=== PATIENT | male | born 1960 | race Caucasian/White ===

== ENCOUNTER 2019-11-28 14:55 | Inpatient (IN) | payer OTHER ==
[2019-11-28] MEDS ORDERED: ASPIRIN 81 MG CHEWABLE TABLET ONE ×2 (15:23→16:53)
[2019-11-28] MEDS ORDERED: CLOPIDOGREL 75 MG TABLET ONE (15:24)
[2019-11-28] MEDS ORDERED: ONDANSETRON 4 MG/2 ML VIAL ONE (15:24)
[2019-11-28] MEDS ORDERED: MORPHINE 2 MG/ML SYR ONE ×2 (15:24→15:42)
[2019-11-28] MEDS ORDERED: NA CHLORIDE 0.9% 500 ML ONE (15:25)
[2019-11-28 15:32] LABS: Absolute Lymphocytes (CBC) 1.4 K/uL (0.7-4.9); Basophils % 0.7 % (0-1.3); Hematocrit 50.1 % (39.6-49.0); Lymphocytes % 9.2 % (15.3-44.8); MPV 8.2 fL (7.6-11.3); Protime INR 0.98; RBC Red Blood Cell Count 5.26 M/uL (4.33-5.43)
--- NOTE | 2019-11-28 15:36 | ER ---
Nurse's Notes [facility] Name: Jamie Myrick Age: 59 yrs Sex: Male : 1960 Arrival Date: 11/28/2019 Time: 14:56 Bed 28 Private MD: Diagnosis: ST elevation (STEMI) myocardial infarction of unspecified site Presentation: 11/28 14:59 Presenting complaint: Patient states: Left sided chest pain, nausea, and headache that iw started 30 minutes ago. States that that he has a history of MT 12 years ago. Transition of care: patient was not received from another setting of care. Onset of symptoms was November 28, 2019. Risk Assessment: Do you want to hurt yourself or someone else? Patient reports no desire to harm self or others. Initial Sepsis Screen: Does the patient meet any 2 criteria? No. Patient's initial sepsis screen is negative. Does the patient have a suspected source of infection? Yes:. Care prior to arrival: None. 14:59 Method Of Arrival: Ambulatory iw 14:59 Acuity: CHRIS 2 iw Triage Assessment: 15:02 General: Appears in no apparent distress. comfortable, Behavior is calm, cooperative, iw appropriate for age. Pain: Complains of pain in anterior aspect of left upper chest. Neuro: Level of Consciousness is awake, alert, obeys commands. Cardiovascular: Patient's skin is warm and dry. Respiratory: Airway is patent Respiratory effort is even, unlabored, Respiratory pattern is regular, symmetrical. Historical: - Allergies: 15:02 No Known Allergies; iw - Home Meds: 15:02 aspirin 81 mg Oral chew 1 tab once daily [Active]; metoprolol tartrate Oral [Active]; iw Simvastatin Oral [Active]; blood pressure medicine [Active]; - PMHx: 15:02 Myocardial infarction; Hypertension; Hyperlipidemia; iw - PSHx: 15:02 Appendectomy; iw - Immunization history:: Adult Immunizations up to date. - Coronavirus screen:: The patient has NOT traveled to [place], [place], or [place] in the past 14 days. - Social history:: Smoking status: Patient/guardian denies using tobacco. - Ebola Screening: : Patient denies travel to an Ebola-affected area in the 21 days before illness onset. Screenin:00 Abuse screen: Denies threats or abuse. Nutritional screening: No deficits noted. vc Tuberculosis screening: No symptoms or risk factors identified. Fall Risk None identified. Assessment: 15:05 Pain: Pain does not radiate. Pain began suddenly. vc 15:05 General: Appears in no apparent distress. uncomfortable, Behavior is calm, cooperative, vc appropriate for age. Pain: Complains of pain in chest Pain does not radiate. Pain Quality of pain is described as sharp, Noted to be calm. Patient states this does not feel the same as his last heart attack. Also complains of nausea, headache. Neuro: Level of Consciousness is awake, alert, obeys commands, Oriented to person, place, time, situation, When patient asked what he rates his pain he could not give an exact number. He would answer with I do not know.. Door Liner are equal bilaterally. Cardiovascular: Reports chest pain, nausea, since About 45 minutes to an hour ago. Patient's skin is warm and dry. Rhythm is. Respiratory: Airway is patent Respiratory effort is even, unlabored, Respiratory pattern is regular, symmetrical, Denies shortness of breath at rest, on exertion. GI: No signs and/or symptoms were reported involving the gastrointestinal system. : No signs and/or symptoms were reported regarding the genitourinary system. EENT: No deficits noted. Derm: Skin is intact, is healthy with good turgor, Skin temperature is warm. Musculoskeletal: Circulation, motion, and sensation intact. Range of motion: intact in all extremities. 15:05 Reassessment: Medical provider at the bedside. vc 15:10 Reassessment: Patient states , "I feel fine, my chest barely hurts anymore.". vc 15:30 Reassessment: Filter Machine Operator at the bedside. vc 15:40 Reassessment: Cardiac catherization team at the bedside. vc 15:46 Reassessment: Patient leaving ER via stretcher with cardiac nurses and mother. vc Vital Signs: 15:02 BP 125 / 91; Pulse 83; Resp 18; Pulse Ox 99% on R/A; Weight 106.59 kg (R); Height 6 ft. iw 0 in. (182.88 cm) (R); Pain 6/10; 15:21 Height 6 ft. (182.88 cm); iw 15:30 Pulse 87; Pulse Ox 96% on R/A; vc 15:21 Body Mass Index 31.87 (106.59 kg, 182.88 cm) iw ED Course: 14:56 Patient arrived in ED. as 15:00 Triage completed. iw 15:02 Arm band placed on Patient placed in an exam room. iw 15:05 Lizbeth Altamirano, RN is Primary Nurse. vc 15:05 Patient has correct armband on for positive identification. Placed in gown. Bed in low vc position. Call light in reach. Side rails up X 1. accounting reconciliation clerk on. Pulse ox on. NIBP on. 15:09 Steven Fernández PA is PHCP. cp 15:09 Clifton Rome MD is Attending Physician. cp 15:10 Patient maintains SpO2 saturation greater than 95% on room air. vc 15:17 No provider procedures requiring assistance completed. Missed attempt(s): 18 gauge in vc right forearm. Inserted. 15:21 Inserted saline lock: 20 gauge in left antecubital area, using aseptic technique. lt1 15:[address] Ordonez called and connected. eb 15:27 EKG done, by ED staff, reviewed by Steven HOLLAND. lt1 15:30 called and connected the Hospitalist Dr. Cuevas with Steven HOLLAND for patient eb consultation. 15:34 Artemio Cuevas MD is Hospitalizing Provider. cp 15:37 XRAY Chest (1 view) In Process Unspecified. EDMS 15:40 Patient admitted, IV remains in place. vc Administered Medications: 15:27 Drug: Zofran 4 mg Route: IVP; Site: left antecubital; vc 15:45 Follow up: Response: No adverse reaction vc 15:28 Drug: morphine 2 mg Route: IVP; Site: left antecubital; vc 15:40 Follow up: Response: No adverse reaction; Pain is decreased vc 15:28 Drug: PlaVIX 300 mg Route: PO; vc 15:40 Follow up: Response: No adverse reaction vc 15:29 Drug: NS 0.9% 500 ml Route: IV; Rate: bolus; Site: left antecubital; vc 15:30 Not Given (Patient took 1 200mg ASA and 3-4 81mg ASA before arrival.): Aspirin Chewable vc Tablet 324 mg PO once; 81 mg tablets x 4 15:37 CANCELLED (Duplicate Order): NS 0.9% 1000 ml IV at 100 ml/hr once wh 15:40 Drug: morphine 2 mg Route: IVP; Site: left antecubital; 16:32 Follow up: Response: No adverse reaction vc Outcome: 15:35 Decision to Hospitalize by Provider. cp 15:50 Admitted to [employer] accompanied by nurse, accompanied by tech, via wheelchair, on iw monitor, with chart. 15:50 Condition: good 15:50 Discharge instructions given to patient, family, Instructed on the need for admit, Demonstrated understanding of instructions. 16:11 Patient left the ED. iw Signatures: Dispatcher [employer] Yeimi George Irene, RN RN iw Steven Fernández PA PA cp Marielena, [facility] Scott, Veronika Braswell [facility] Lizbeth Altamirano RN RN vc Corrections: (The following items were deleted from the chart) 15:46 15:44 Reassessment: Cardiac catherization team at the bedside, vc vc 16:42 15:48 Pain: Pain does not radiate. Pain began suddenly, vc vc
[2019-11-28] MEDS ORDERED: ATROPINE SULF 1 MG/10 ML SYR IV ONE (15:37)
[2019-11-28] MEDS ORDERED: NA CHLORIDE 0.9% 50 ML ONE (15:37)
[2019-11-28] MEDS ORDERED: HEPA 1000U/500MLS 2,000 UNIT/1,000 ML BAG IV ONE (15:37)
[2019-11-28] MEDS ORDERED: LIDOCAINE 1% MPF 30 ML VIAL ONE (15:37)
--- NOTE | 2019-11-28 15:37 | EDPHYS ---
Physician Documentation [facility] Name: Jamie Myrick Age: 59 yrs Sex: Male : 1960 Arrival Date: 11/28/2019 Time: 14:56 Bed 28 Private MD: ED Physician Clifton Rome HPI: 11/28 15:20 This 59 yrs old Male presents to ER via Ambulatory with complaints of Chest cp Pain, Headache. 15:21 The patient or guardian reports chest pain that is located primarily in the anterior cp chest wall, left. Onset: 1 hour(s) ago. Associated signs and symptoms: Pertinent positives: headache, Pertinent negatives: abdominal pain, lower extremity pain, lower extremity swelling, shortness of breath, syncope, vomiting. Duration: The patient or guardian reports a single episode, that is still ongoing, but improving. Historical: - Allergies: 15:02 No Known Allergies; iw - Home Meds: 15:02 aspirin 81 mg Oral chew 1 tab once daily [Active]; metoprolol tartrate Oral [Active]; iw Simvastatin Oral [Active]; blood pressure medicine [Active]; - PMHx: 15:02 Myocardial infarction; Hypertension; Hyperlipidemia; iw - PSHx: 15:02 Appendectomy; iw - Immunization history:: Adult Immunizations up to date. - Coronavirus screen:: The patient has NOT traveled to [place], [place], or [place] in the past 14 days. - Social history:: Smoking status: Patient/guardian denies using tobacco. - Ebola Screening: : Patient denies travel to an Ebola-affected area in the 21 days before illness onset. ROS: 15:22 Eyes: Negative for injury, pain, redness, and discharge. cp 15:22 Constitutional: Negative for body aches, chills, fever, poor PO intake. 15:22 ENT: Negative for ear pain, sore throat, difficulty swallowing, difficulty handling secretions. 15:22 Cardiovascular: Positive for chest pain, Negative for edema, palpitations. 15:22 Respiratory: Negative for cough, shortness of breath, wheezing. 15:22 Abdomen/GI: Negative for abdominal pain, nausea, vomiting, and diarrhea. 15:22 Back: Negative for radiated pain. 15:22 Neuro: Negative for altered mental status, headache, weakness. 15:22 All other systems are negative. Exam: 15:15 ECG was reviewed by the Attending Physician. cp 15:23 Head/Face: Normocephalic, atraumatic. cp 15:23 Constitutional: The patient appears in no acute distress, alert, awake, non-diaphoretic, non-toxic, well developed, well nourished. 15:23 Eyes: Periorbital structures: appear normal, Conjunctiva: normal, no exudate, no injection, Sclera: no appreciated abnormality, Lids and lashes: appear normal, bilaterally. 15:23 ENT: External ear(s): are unremarkable, Nose: is normal, Mouth: Lips: moist, Oral mucosa: pink and intact, moist, Posterior pharynx: is normal, airway is patent, no erythema, no exudate. 15:23 Neck: ROM/movement: is normal, is supple, without pain, no range of motions limitations, no meningismus, no nuchal rigidity. 15:23 Chest/axilla: Inspection: normal, Palpation: is normal, no crepitus, no tenderness. 15:23 Cardiovascular: Rate: normal, Rhythm: regular, Edema: 15:25 Respiratory: the patient does not display signs of respiratory distress, Respirations: cp normal, no use of accessory muscles, no retractions, no splinting, no tachypnea, labored breathing, is not present, Breath sounds: are clear throughout, no decreased breath sounds, no stridor, no wheezing. 15:25 Abdomen/GI: Exam negative for discomfort, distension, guarding, Inspection: abdomen cp appears normal. 15:25 Back: pain, is absent, ROM is normal. 15:25 Neuro: Orientation: to person, place \T\ time. Mentation: is normal, Motor: moves all fours, strength is normal, Sensation: no obvious gross deficits. Vital Signs: 15:02 BP 125 / 91; Pulse 83; Resp 18; Pulse Ox 99% on R/A; Weight 106.59 kg (R); Height 6 ft. iw 0 in. (182.88 cm) (R); Pain 6/10; 15:21 Height 6 ft. (182.88 cm); iw 15:30 Pulse 87; Pulse Ox 96% on R/A; vc 15:21 Body Mass Index 31.87 (106.59 kg, 182.88 cm) iw MDM: 15:09 Patient medically screened. cp 15:20 Physician consultation: Geovani Ordonez MD was called at 15:15, was contacted at 15:15, cp regarding patient's condition, and will see patient in ED, shortly. 15:43 The patient was not given aspirin in the Emergency Department. Patient reports taking cp aspirin within the past 24 hours. Data reviewed: vital signs, nurses notes. Data reviewed: vital signs, nurses notes, EKG, radiologic studies, plain films, I have discussed the patient's presentation/case with the attending Emergency Department Physician;. Test interpretation: by ED physician or midlevel provider: ECG, plain radiologic studies, chest xray negative for infiltrates. Counseling: I had a detailed discussion with the patient and/or guardian regarding: the historical points, exam findings, and any diagnostic results supporting the discharge/admit diagnosis, the need for further work-up and treatment in the hospital. 11/28 15:13 Order name: Basic Metabolic Panel cp 11/28 15:13 Order name: CBC with Diff; Complete Time: 16:03 cp 11/28 16:03 Interpretation: Normal except: WBC 15.7; HCT 50.1; PATRICIA% 82.2; LYM% 9.2; NEUT A 12.9. cp 11/28 15:13 Order name: LFT's cp 11/28 15:13 Order name: Magnesium cp 11/28 15:13 Order name: NT PRO-BNP cp 11/28 15:13 Order name: PT-INR; Complete Time: 16:03 cp 11/28 15:13 Order name: Troponin (emerg Dept Use Only) cp 11/28 15:13 Order name: XRAY Chest (1 view); Complete Time: 16:03 cp 11/28 16:04 Interpretation: Report review. cp 11/28 15:13 Order name: EKG; Complete Time: 15:15 cp 11/28 15:13 Order name: Cardiac monitoring; Complete Time: 15:26 cp 11/28 15:13 Order name: EKG - Nurse/Tech; Complete Time: 15:26 cp 11/28 15:13 Order name: IV Saline Lock; Complete Time: 15:26 cp 11/28 15:13 Order name: Labs collected and sent; Complete Time: 15:31 cp 11/28 15:13 Order name: O2 Per Protocol; Complete Time: 15:26 cp 11/28 15:13 Order name: O2 Sat Monitoring; Complete Time: 15:26 cp 11/28 15:35 Order name: Labs - recollect needed: recollect chemistry tube; Complete Time: 15:41 eb EC:15 Rate is 75 beats/min. Rhythm is regular. ND interval is normal. QRS interval is normal. cp QT interval is normal. ST Segment is elevated in leads I, aVL, V2, V3, V4. ST Segment is depressed in leads III, aVF. Clinical impression: Acute TN. Interpreted by me. Reviewed by me. Administered Medications: 15:27 Drug: Zofran 4 mg Route: IVP; Site: left antecubital; vc 15:45 Follow up: Response: No adverse reaction vc 15:28 Drug: morphine 2 mg Route: IVP; Site: left antecubital; vc 15:40 Follow up: Response: No adverse reaction; Pain is decreased vc 15:28 Drug: PlaVIX 300 mg Route: PO; vc 15:40 Follow up: Response: No adverse reaction vc 15:29 Drug: NS 0.9% 500 ml Route: IV; Rate: bolus; Site: left antecubital; vc 15:30 Not Given (Patient took 1 200mg ASA and 3-4 81mg ASA before arrival.): Aspirin Chewable vc Tablet 324 mg PO once; 81 mg tablets x 4 15:37 CANCELLED (Duplicate Order): NS 0.9% 1000 ml IV at 100 ml/hr once 15:40 Drug: morphine 2 mg Route: IVP; Site: left antecubital; wh 16:32 Follow up: Response: No adverse reaction vc Disposition: 18:16 Co-signature as Attending Physician, Clifton Rome MD. ma2 Disposition: 11/28/19 15:35 Hospitalization ordered by Artemio Cuevas for Inpatient Admission. Preliminary diagnosis is ST elevation (STEMI) myocardial infarction of unspecified site. - Bed requested for Floor Coverings Salesperson. - Status is Inpatient Admission. iw - Condition is Fair. - Problem is new. - Symptoms have improved. Signatures: Dispatcher [employer] Yazmin Willett RN RN iw Steven Fernández PA PA cp Habalo, Winsy Clifton Rome MD MD maVeronika Lopes Vanessa, RN RN vc Corrections: (The following items were deleted from the chart) 15:37 15:36 NS 0.9% 1000 ml IV at 100 ml/hr once ordered. [facility] 15:45 15:20 The patient was not given aspirin in the Emergency Department. Patient reports cp taking aspirin within the past 24 hours. cp 15:45 15:20 Test interpretation: by ED physician or midlevel provider: ECG, cp cp 16:11 15:35 Hospitalization Ordered by Artemio Cuevas MD for Inpatient Admission. Preliminary iw diagnosis is ST elevation (STEMI) myocardial infarction of unspecified site. Bed requested for Floor Coverings Salesperson. Status is Inpatient Admission. Condition is Fair. Problem is new. Symptoms have improved. cp
[2019-11-28] MEDS ORDERED: NA CHLORIDE 0.9% 1,000 ML ONE (15:42)
--- NOTE | 2019-11-28 15:46 | RAD REPORT ---
EXAM DESCRIPTION: RAD - Chest Single View - 11/28/2019 3:32 pm CLINICAL HISTORY: CHEST PAIN Chest pain. COMPARISON: CHEST SINGLE VIEW dated 03/20/2012 FINDINGS: Portable technique limits examination quality. The lungs are grossly clear. The heart is normal in size. No displaced fractures. IMPRESSION: No acute intrathoracic process suspected.
[2019-11-28] MEDS ORDERED: FENTANYL CITR 100 MCG/2 ML ONE ×2 (16:00→16:27)
[2019-11-28] MEDS ORDERED: MIDAZOLAM HCL 2 MG/2 ML INJ ONE ×3 (16:00→16:27)
[2019-11-28 16:21] LABS: ALT/SGPT 29 U/L (12-78); AST/SGOT 27 U/L (15-37); Albumin 4.1 g/dL (3.4-5.0); Alkaline Phosphatase 62 U/L (45-117); BUN Blood Urea Nitrogen 25 mg/dL (7-18); Bicarbonate 25 mmol/L (21-32); Bilirubin Direct 0.2 mg/dL (0-0.2); Bilirubin Total 0.9 mg/dL (0.2-1.0); Glucose Level 117 mg/dL (74-106); Magnesium 1.9 mg/dL (1.8-2.4); NT PRO-BNP 100 pg/mL (<125); Potassium 4.1 mmol/L (3.5-5.1); Protein, Total 7.3 g/dL (6.4-8.2); Sodium Level 141 mmol/L (136-145); Troponin (Emerg Dept Use Only) < 0.02 ng/mL (0.0-0.045)
[2019-11-28] MEDS ORDERED: PRASUGREL (EFFIENT) 10 MG TAB ONE (16:54)
[2019-11-28] MEDS ORDERED: MORPHINE 2 MG/ML SYR IV PRN (17:10)
[2019-11-28] MEDS ORDERED: ALBUTEROL 2.5 MG/3 ML NEB SOL NEB PRN (17:10)
[2019-11-28] MEDS ORDERED: Oxycodone HCl/Acetaminophen 1 TAB TAB PO PRN (17:13)
--- NOTE | 2019-11-28 18:01 | P.HP ---
Certification for Inpatient Patient admitted to: Inpatient With expected LOS: >2 Midnights Patient will require the following post-hospital care: None Practitioner: I am a practitioner with admitting privileges, knowledge of patient current condition, hospital course, and medical plan of care. Services: Services provided to patient in accordance with Admission requirements found in Title 42 Section 412.3 of the Code of Federal Regulations Patient History Date of Service: 11/28/19 Reason for admission: Left-sided chest pain History of Present Illness: 59-year-old male with past medical history of HTN, hyperlipidemia, CAD status post ID with PCI 12years ago developed left-sided chest pain today after lunch while inpatient. Pain was stabbing and radiating to the back associated with nausea but no vomiting. He denies any shortness of breath. Pain continued to persist for more than 20 min. The patient presented to the ED with symptoms of the pain after taking the aspirin. EKG in the ER shows ST- elevation in the anterior leads. He was evaluated urgently by Cardiology has been taken to the cardiac catheterization lab level cardiac catheterization. Findings soft stenosis of the LAD which was stented. Postprocedure patient feels much better. No more chest pain. He denies any shortness of breath. Allergies erythromycin base [Erythromycin Base] Adverse Reaction (Intermediate, Verified 07/14/12 03:15) Nausea/Vomiting Home Medications: NK [No Home Meds] 03/20/12 Aspirin 325 mg PO DAILY #0 tablet 03/22/12 Clopidogrel Bisulfate [Plavix*] 75 mg PO DAILY #0 tablet 03/22/12 Lisinopril [Prinivil] 10 mg PO DAILY #0 tablet 03/22/12 Metoprolol Succinate [Toprol Xl] 50 mg PO DAILY #0 tab.sr.24h 03/22/12 Simvastatin 40 mg PO BEDTIME #0 tablet 03/22/12 - Past Medical/Surgical History Diabetic: No -: Hypertension -: Hyperlipidemia -: CAD -: Appendectomy - Family History Family History: Reviewed- Non-Contributory - Social History Smoking Status: Never smoker Alcohol use: Yes CD- Drugs: No Caffeine use: Yes Place of Residence: Home Review of Systems 10-point ROS is otherwise unremarkable Physical Examination - Vital Signs Blood Pressure: 125/91 Pulse: 83 Respirations: 18 - Physical Exam General: Alert, In no apparent distress, Oriented x3, Obese HEENT: Atraumatic, Normocephalic Neck: Supple, 2+ carotid pulse no bruit, Other (Few Misael lower rash over right clavicle area) Respiratory: Clear to auscultation bilaterally, Normal air movement Cardiovascular: No edema, Normal pulses, Regular rate/rhythm, Normal S1 S2 Gastrointestinal: Normal bowel sounds, Soft and benign, Non-distended Musculoskeletal: No clubbing, No swelling Integumentary: No rashes, No breakdown Neurological: Normal speech, Normal strength at 5/5 x4 extr, Cranial nerves 3- 12 intact - Studies Laboratory Data (last 24 hrs) 11/28/19 15:45: Sodium 141, Potassium 4.1, BUN 25 H, Creatinine 1.60 H, Glucose 117 H, Magnesium 1.9, Total Bilirubin 0.9, AST 27, ALT 29, Alkaline Phosphatase 62 11/28/19 15:10: PT 11.6, INR 0.98 11/28/19 15:10: WBC 15.7 H, Hgb 17.1, Hct 50.1 H, Plt Count 247 Assessment and Plan - Problems (Diagnosis) (1) STEMI (ST elevation myocardial infarction) Current Visit: Yes Status: Acute (2) HTN (hypertension) Current Visit: Yes Status: Acute (3) Obesity Current Visit: Yes Status: Acute (4) HLD (hyperlipidemia) Current Visit: Yes Status: Acute Discharge Plan: Home Plan to discharge in: 48 Hours - Advance Directives Does patient have a Living Will: No Does patient have a Durable POA for Healthcare: No - Code Status/Comfort Care Code Status: Full Code Physician Review: Patient Assessed, Agree with Above Assessment and Plan Physician Review Additional Text: STEMI- s/p PCI with LAD stent -c/w statin/aspirin/plavix/lovenox per cardiology -resume beta-patricia - monitor in ICU for next 24 hrs -can start plan for cardiac rehab HTN- controlled , c/w regime HLD -follow lipid panel in am , may need adjusrt statin dose DVT prop- on lovenox
[2019-11-28] MEDS: METOPROLOL TAR 50 MG TAB PO SCH (18:25)
[2019-11-28] MEDS: FAMOTIDINE 20 MG/2 ML VIAL IV SCH (20:18)
[2019-11-28] MEDS: ATORVASTATIN 80 MG TAB PO SCH (20:18)
[2019-11-28] MEDS: INSULIN -REGULAR HUMAN 50 UNIT/0.5 ML ML SQ SCH (20:19)
--- NOTE | 2019-11-28 20:55 | CON ---
Reason For Consultation: Mr. Myrick is having an acute LA. He will be taken to the cardiac cath la b and have an attempt at a stent. History Of Present Illness: Mr. Myrick was in his usual state of health. He was fishing at about 0 130 today, started having chest pain. He got to the emergency room closer to 3 o'clock and his EKG s hows ST elevation in leads 1 and aVL consistent with occlusion of a large diagonal coronary artery. In 2011, he had a stent of the proximal LAD, coronary artery. Mr. Myrick has underlying hypertensio n, dyslipidemia. He reports no allergies to x-ray contrast material or other drugs use in the cath l ab. He is intolerant of erythromycin base. Home Medications: Aspirin, metoprolol, simvastatin, and another blood pressure medicine that we do n ot know. Past Surgical History: He had a stent in 2011 and appendectomy before that. Physical Examination: General: He is alert, oriented, pleasant, obese, not in distress. Vital Signs: Blood pressure 125/91, pulse 83. Weight 106 kg, height 6 feet 0 inch tall, body mass i ndex 31. HEENT: Otherwise normal. No carotid bruit. Lungs: Clear. No pulmonary edema. No pulmonary crackles. The patient has been given Plavix 300 mg by mouth and aspirin. Impression And Plan: He is having an acute myocardial infarction. There may be some difficulty gett ing a diagonal open with a proximal left anterior descending stent present, it may be jailing the ves andreea that we should give it a good try to see if he needs emergency bypass surgery if we can open it w ith a stent. He is not in much distress, so we need to move quickly and see what the anatomy is, see what we can do to help. LETHA/ANDREW Voice ID: [id number] Report ID: [id number]
--- NOTE | 2019-11-29 03:47 | OP ---
Surgeon: Geovani Ordonez MD Identification: 59-year-old man. Procedure: Left heart catheterization; coronary angiography; percutaneous coronary intervention of a totally occluded left anterior descending artery for ST-elevation anterior myocardial infarction, successful. Procedure Findings: The patient's right coronary artery, left main, and circumflex arteries were free of any stenosis. There was minimal lumen irregularity there. The LAD was totally occluded right after the first diagonal and first septal. A stent had been placed in the proximal LAD and ended right about the point of the thrombus started. After the thrombus had been cleared, we could tell there was about a 70% stenosis in the mid LAD that probably caused the thrombosis. So, it is not really fair to call it an in- stent stenosis, although the thrombus extended to the end of the stent placed in 2011. After the procedure was complete and after we placed the 2.5 x 20 stent inflated to 11 atmospheres, there was no residual stenosis. There was HAZEL grade 3 flow. The very, very distal part of the LAD placed beyond where we would normally try to put stents appeared to be totally occluded, but by that time, the patient was asymptomatic. His ST segments had resolved and we decided not to attempt to open the very distal LAD. So, in summary, successful percutaneous coronary intervention for ST-elevation anterior [place]. Procedure In Detail: The patient was brought to the cardiac labor custodian. He was not fasting. It was emergent. He had drunk fluids about an hour before the case. Sedated with Versed and fentanyl, prepared and draped in usual sterile fashion. No radial pulse could be detected, so we used the right femoral approach. 1% lidocaine was used to anesthetize the skin. We entered the artery using an 18-gauge needle, cannulated it with a short J-wire, and placed a 6-Maltese sheath, flushed the sheath. We gave Angiomax as soon as we were able to visualize what the lesion was. We used a JL4 to angiogram left coronary , 3DRC to angiogram the right, both 6-Maltese catheters. We then switched to a 6 -Maltese XBLAD 3.5 with side holes. We used a [place] wire inside an Emerge 2.5 x 15 balloon. We were able to cross the lesion. It was very soft, all thrombus , no calcification or significant angulation to deal with. Once the wire was across, we established HAZEL grade 3 flow and we were able to see the lesion. We then stented across the lesion. The stent overlapped the old stent slightly. It was a 2.5 x 20 and the HAZEL flow was good after that. At the end of the procedure, pictures were taken in orthogonal views with the wire and stents taken out. A good angiographic result was seen. 1 dose of nitroglycerin intracoronary was given. It did not really change anything. Sheath shot was done and we were able to see a good anatomy for closure using Angio-Seal. Once the ACT is less than 300 seconds, we will close with Angio- Seal. He will be in the ICU overnight. Railroad Construction Director: Matthew Santoyo. Complications: No complications. Estimated Blood Loss: 10 cc. LETHA/ANDREW Voice ID: [id number] Report ID: [id number]
[2019-11-29 04:54] LABS: Absolute Lymphocytes (CBC) 1.6 K/uL (0.7-4.9); Basophils % 0.5 % (0-1.3); Hematocrit 45.3 % (39.6-49.0); Lymphocytes % 14.3 % (15.3-44.8); MPV 8.1 fL (7.6-11.3); RBC Red Blood Cell Count 4.79 M/uL (4.33-5.43)
[2019-11-29] MEDS: METOPROLOL TAR 50 MG TAB PO SCH ×2 (05:13→17:10)
[2019-11-29 05:17] LABS: Albumin 3.6 g/dL (3.4-5.0); Bilirubin Total 1.6 mg/dL (0.2-1.0); Potassium 3.7 mmol/L (3.5-5.1); Protein, Total 6.2 g/dL (6.4-8.2)
[2019-11-29 05:34] LABS: Troponin I 23.1 ng/mL (0.0-0.045)
[2019-11-29 05:40] VITALS: BMI 32.4
[2019-11-29] MEDS: INSULIN -REGULAR HUMAN 50 UNIT/0.5 ML ML SQ SCH ×2 (07:30→11:30)
[2019-11-29] MEDS: LOSARTAN POTASSIUM 50 MG TABLET PO SCH (09:16)
[2019-11-29] MEDS: ASPIRIN EC 81 MG TAB PO SCH (09:16)
[2019-11-29] MEDS: CLOPIDOGREL 75 MG TABLET PO SCH (09:16)
[2019-11-29] MEDS: FAMOTIDINE 20 MG/2 ML VIAL IV SCH ×2 (09:17→20:14)
--- NOTE | 2019-11-29 11:06 | P.PN ---
Subjective Date of Service: 11/29/19 Chief Complaint: Left-sided chest pain Subjective: No new changes, Tolerating diet, Doing well Review of Systems 10-point ROS is otherwise unremarkable Physical Examination - Vital Signs Temperature: 97.7 F Blood Pressure: 115/56 Pulse: 71 Respirations: 19 Pulse Ox (%): 93 - Physical Exam General: Alert, In no apparent distress, Oriented x3 HEENT: Atraumatic, Normocephalic, PERRLA, Mucous membr. moist/pink Neck: 2+ carotid pulse no bruit, JVD not distended Respiratory: Clear to auscultation bilaterally, Normal air movement Cardiovascular: No edema, Normal pulses, Regular rate/rhythm, Normal S1 S2 Gastrointestinal: Normal bowel sounds, Soft and benign, Non-distended Musculoskeletal: No clubbing, No swelling (Dsg over right groin) Neurological: Normal speech, Sensation intact, Cranial nerves 3-12 intact - Studies Laboratory Data (last 24 hrs) 11/28/19 15:45: Sodium 141, Potassium 4.1, BUN 25 H, Creatinine 1.60 H, Glucose 117 H, Magnesium 1.9, Total Bilirubin 0.9, AST 27, ALT 29, Alkaline Phosphatase 62 11/28/19 15:10: PT 11.6, INR 0.98 11/28/19 15:10: WBC 15.7 H, Hgb 17.1, Hct 50.1 H, Plt Count 247 Medications List Reviewed: Yes Assessment & Plan - Problems (Diagnosis) (1) STEMI (ST elevation myocardial infarction) Current Visit: Yes Status: Acute (2) HTN (hypertension) Current Visit: Yes Status: Acute (3) Obesity Current Visit: Yes Status: Acute (4) HLD (hyperlipidemia) Current Visit: Yes Status: Acute Physician Review: Patient Assessed, Agree with Above Assessment and Plan Physician Review Additional Text: STEMI- improving - no arrhythmias on tele -follow cardiology -s/p PCI with LAD stent -c/w statin/aspirin/plavix/lovenox per cardiology - will transfer to floor today ARF - improving -creatinine to 1.27 -appreciate renal team eval HTN- controlled , c/w regime HLD -controlled lipid panel ,c/ home statin dose DVT prop- on lovenox possible dc home if cleared by cardiology Time Spent Managing Pts Care (In Minutes): 31
--- NOTE | 2019-11-29 12:11 | PN ---
Mr. Myrick is doing very well following an ST-elevation [place], treated with emergency proximal and mid LAD stents. No further chest pain. No ST elevation. Laboratory exam looks good. His troponin is e levated as expected. It was less than 0.02 on arrival 23.1 this morning. His lipid panel is really quite good, but we are going to treat him with 80 mg of Lipitor in spite of his already reasonably go od lipid profile. He is ready to be transferred to a regular floor, begin walking, and probably be d ischarged tomorrow if he is stable. LETHA/ANDREW Voice ID: [id number] Report ID: [id number]
[2019-11-29] MEDS: ATORVASTATIN 80 MG TAB PO SCH (20:14)
[2019-11-30] MEDS: METOPROLOL TAR 50 MG TAB PO SCH (05:26)
[2019-11-30 06:17] LABS: Absolute Lymphocytes (CBC) 1.8 K/uL (0.7-4.9); Basophils % 0.5 % (0-1.3); Hematocrit 48.5 % (39.6-49.0); MPV 8.2 fL (7.6-11.3); RBC Red Blood Cell Count 5.09 M/uL (4.33-5.43)
[2019-11-30 06:28] LABS: Albumin 3.9 g/dL (3.4-5.0); Bilirubin Total 1.3 mg/dL (0.2-1.0); Potassium 3.8 mmol/L (3.5-5.1); Protein, Total 7.2 g/dL (6.4-8.2)
--- NOTE | 2019-11-30 06:31 | EKG ---
Test Date: 2019-11-28 Test Time: 15:09:26 Gis Developer: BRADLEY MEASUREMENT RESULTS: Intervals: Rate: 75 NC: 154 QRSD: 80 QT: 394 QTc: 439 [place]: P: 21 NC: 154 QRS: 47 T: -4 INTERPRETIVE STATEMENTS: Normal sinus rhythm ST elevation, consider lateral injury or acute infarct ACUTE NM / STEMI Abnormal ECG Compared to ECG 03/22/2012 06:34:05 ST (T wave) deviation now present Myocardial infarct finding now present Right-axis deviation no longer present T-wave abnormality no longer present Possible ischemia no longer present Electronically Signed On 11-30-19 06:30:18 BIOMECHANICAL ENGINEER by Geovani Ordonez
[2019-11-30 06:45] LABS: Troponin I 9.69 ng/mL (0.0-0.045)
--- NOTE | 2019-11-30 09:00 | P.DS ---
Admission Date: 11/28/19 Discharge Date: 11/30/19 Disposition: ROUTINE DISCHARGE Discharge Condition: FAIR Reason for Admission: Left-sided chest pain - Problems (1) STEMI (ST elevation myocardial infarction) Current Visit: Yes Status: Acute (2) HTN (hypertension) Current Visit: Yes Status: Acute (3) Obesity Current Visit: Yes Status: Acute (4) HLD (hyperlipidemia) Current Visit: Yes Status: Acute Brief History of Present Illness: 59-year-old male with past medical history of HTN, hyperlipidemia, CAD status post OR with PCI 12years ago developed left-sided chest pain today after lunch while inpatient. Pain was stabbing and radiating to the back associated with nausea but no vomiting. He denies any shortness of breath. Pain continued to persist for more than 20 min. The patient presented to the ED with symptoms of the pain after taking the aspirin. EKG in the ER shows ST- elevation in the anterior leads. He was evaluated urgently by Cardiology has been taken to the cardiac catheterization lab level cardiac catheterization. Findings soft stenosis of the LAD which was stented. Postprocedure patient feels much better. No more chest pain. He denies any shortness of breath. Hospital Course: Patient on admission was not with until wall STEMI. He was also noted with elevated creatinine to 1.6. He underwent an urgent cardiac catheterization with LAD PCI x1. He has was started on IV fluid. His creatinine improved to 1.2 continued to improve now. Patient is doing well ambulating without any difficulty or shortness of breath or recurrence of chest pain. He will be discharged home today follow with Cardiology as outpatient Vital Signs/Physical Exam: Temp Pulse Resp BP Pulse Ox 98.0 F 68 16 133/72 94 11/30/19 04:00 11/30/19 05:26 11/30/19 04:00 11/30/19 05:26 11/30/19 04:00 General: Alert, In no apparent distress, Oriented x3 HEENT: Atraumatic, Normocephalic, PERRLA Neck: 2+ carotid pulse no bruit, JVD not distended Respiratory: Clear to auscultation bilaterally, Normal air movement Cardiovascular: Normal S1 S2 Gastrointestinal: Normal bowel sounds, Soft and benign Integumentary: No rashes, No breakdown Neurological: Normal speech, Normal strength at 5/5 x4 extr, Normal tone Laboratory Data at Discharge: WBC 9.2 K/uL (4.3-10.9) D 11/30/19 05:30 Hgb 16.4 g/dL (13.6-17.9) 11/30/19 05:30 Hct 48.5 % (39.6-49.0) 11/30/19 05:30 Plt Count 221 K/uL (152-406) 11/30/19 05:30 PT 11.6 SECONDS (9.5-12.5) 11/28/19 15:10 INR 0.98 11/28/19 15:10 Sodium 138 mmol/L (136-145) 11/30/19 05:30 Potassium 3.8 mmol/L (3.5-5.1) 11/30/19 05:30 BUN 16 mg/dL (7-18) 11/30/19 05:30 Creatinine 1.35 mg/dL (0.55-1.3) H 11/30/19 05:30 Glucose 97 mg/dL (74-106) 11/30/19 05:30 Magnesium 1.9 mg/dL (1.8-2.4) 11/28/19 15:45 Total Bilirubin 1.3 mg/dL (0.2-1.0) H 11/30/19 05:30 AST 63 U/L (15-37) H 11/30/19 05:30 ALT 32 U/L (12-78) 11/30/19 05:30 Alkaline Phosphatase 57 U/L (45-117) 11/30/19 05:30 Troponin I 9.69 ng/mL (0.0-0.045) H* 11/30/19 05:30 Triglycerides 87 mg/dL (<150) 11/29/19 04:36 Cholesterol 106 mg/dL (<200) 11/29/19 04:36 HDL Cholesterol 42 mg/dL (40-60) 11/29/19 04:36 Cholesterol/HDL Ratio 2.52 11/29/19 04:36 Laboratory Last Values WBC 9.2 K/uL (4.3-10.9) D 11/30/19 05:30 RBC 5.09 M/uL (4.33-5.43) 11/30/19 05:30 Hgb 16.4 g/dL (13.6-17.9) 11/30/19 05:30 Hct 48.5 % (39.6-49.0) 11/30/19 05:30 MCV 95.3 fL (80-100) 11/30/19 05:30 MCH 32.3 pg (27.0-35.0) 11/30/19 05:30 MCHC 33.8 g/dL (32.0-36.0) 11/30/19 05:30 RDW 13.4 % (12.1-15.2) 11/30/19 05:30 Plt Count 221 K/uL (152-406) 11/30/19 05:30 MPV 8.2 fL (7.6-11.3) 11/30/19 05:30 Plt Distribution Width Cancelled 11/29/19 Unknown Neutrophils % 66.7 % (41.7-73.7) 11/30/19 05:30 Lymphocytes % 20.0 % (15.3-44.8) 11/30/19 05:30 Monocytes % 7.0 % (3.3-12.3) 11/30/19 05:30 Eosinophils % 5.8 % (0-4.4) H 11/30/19 05:30 Basophils % 0.5 % (0-1.3) 11/30/19 05:30 Absolute Neutrophils 6.1 K/uL (1.8-8.0) 11/30/19 05:30 Absolute Lymphocytes 1.8 K/uL (0.7-4.9) 11/30/19 05:30 Absolute Monocytes 0.6 K/uL (0.1-1.3) 11/30/19 05:30 Absolute Eosinophils 0.5 K/uL (0-0.5) 11/30/19 05:30 Absolute Basophils 0.0 K/uL (0-0.5) 11/30/19 05:30 PT 11.6 SECONDS (9.5-12.5) 11/28/19 15:10 INR 0.98 11/28/19 15:10 Activated Clotting Time 230 SECONDS (127-162) H 11/28/19 17:05 Sodium 138 mmol/L (136-145) 11/30/19 05:30 Potassium 3.8 mmol/L (3.5-5.1) 11/30/19 05:30 Chloride 106 mmol/L (98-107) 11/30/19 05:30 Carbon Dioxide 25 mmol/L (21-32) 11/30/19 05:30 BUN 16 mg/dL (7-18) 11/30/19 05:30 Creatinine 1.35 mg/dL (0.55-1.3) H 11/30/19 05:30 Estimated GFR 54 mL/min (=/>90) L 11/30/19 05:30 Glucose 97 mg/dL (74-106) 11/30/19 05:30 POC Glucose 122 mg/dl (65-120) H 11/28/19 20:08 Calcium 8.8 mg/dL (8.5-10.1) 11/30/19 05:30 Magnesium 1.9 mg/dL (1.8-2.4) 11/28/19 15:45 Total Bilirubin 1.3 mg/dL (0.2-1.0) H 11/30/19 05:30 Direct Bilirubin 0.2 mg/dL (0-0.2) 11/28/19 15:45 AST 63 U/L (15-37) H 11/30/19 05:30 ALT 32 U/L (12-78) 11/30/19 05:30 Alkaline Phosphatase 57 U/L (45-117) 11/30/19 05:30 Rapid Troponin I < 0.02 ng/mL (0.0-0.045) 11/28/19 15:45 Troponin I 9.69 ng/mL (0.0-0.045) H* 11/30/19 05:30 NT-Pro-B Natriuret Pep 100 pg/mL (<125) 11/28/19 15:45 Serum Total Protein 7.2 g/dL (6.4-8.2) 11/30/19 05:30 Albumin 3.9 g/dL (3.4-5.0) 11/30/19 05:30 Globulin 3.3 g/dL (2.3-3.5) 11/30/19 05:30 Albumin/Globulin Ratio 1.2 (1.1-1.8) 11/30/19 05:30 Triglycerides 87 mg/dL (<150) 11/29/19 04:36 Cholesterol 106 mg/dL (<200) 11/29/19 04:36 LDL Cholesterol, Calc 47 (<130) 11/29/19 04:36 HDL Cholesterol 42 mg/dL (40-60) 11/29/19 04:36 Cholesterol/HDL Ratio 2.52 11/29/19 04:36 Home Medications: Clopidogrel Bisulfate [Plavix*] 75 mg PO DAILY #0 tablet 03/22/12 Lisinopril [Prinivil] 10 mg PO DAILY #0 tablet 03/22/12 Aspirin [Aspirin EC 81 MG] 81 mg PO DAILY 11/28/19 Metoprolol Succinate [Toprol Xl] 50 mg PO BID 11/28/19 Atorvastatin Calcium [Lipitor] 80 mg PO BEDTIME #30 tab 11/29/19 New Medications: Atorvastatin Calcium [Lipitor] 80 mg PO BEDTIME #30 tab Diet: Low sodium Activity: Ad michelle Followup: Geovani Ordonez MD [ACTIVE - CAN ADMIT] - 2-3 Days Physician Review: Patient Assessed, Agree with Above Assessment and Plan Time spent managing pt's care (in minutes): 35
[2019-11-30] MEDS: CLOPIDOGREL 75 MG TABLET PO SCH (09:45)
[2019-11-30] MEDS: ASPIRIN EC 81 MG TAB PO SCH (09:45)
[2019-11-30] MEDS: FAMOTIDINE 20 MG/2 ML VIAL IV SCH (09:45)
[2019-11-30] MEDS: LOSARTAN POTASSIUM 50 MG TABLET PO SCH (09:45)
[2019-11-30 09:53] VITALS: BP 127/82; TEMP 98.2
--- NOTE | 2019-11-30 11:13 | EKG ---
Test Date: 2019-11-30 Test Time: 08:41:45 Scheduling Representative: RT Dobson MEASUREMENT RESULTS: Intervals: Rate: 58 NH: 144 QRSD: 82 QT: 498 QTc: 488 [place]: P: 24 NH: 144 QRS: 77 T: 110 INTERPRETIVE STATEMENTS: Sinus bradycardia T wave abnormality, consider anterior ischemia Prolonged QT Abnormal ECG Compared to ECG 11/28/2019 15:09:26 T-wave abnormality now present Possible ischemia now present Prolonged QT interval now present Sinus rhythm no longer present ST (T wave) deviation no longer present Myocardial infarct finding no longer present Electronically Signed On 11-30-19 11:12:49 CELERY WRAPPER by Geovani Ordonez
[2019-11-30 13:36] VITALS: O2SAT 97
--- NOTE | 2019-11-30 16:36 | PN ---
A 59-year-old man. Mr. Myrick is doing very well, following his acute LAD stent for an anterior ST- elevation [place]. He is going to go home, taken atorvastatin, aspirin 81, Plavix 75, lisinopril 10, and metoprolol 50 b.i.d. He is asymptomatic. His right femoral puncture site looks good. No evidence o f AV fistula hematoma hemorrhage. He seems to understand his diagnosis, the treatment that was given and our plans for followup including exercise, diet, return to work. He will call my office for fol lowup visit tomorrow to see Dr. Curtis, his usual doctor in about 2 weeks. LETHA/ANDREW Voice ID: [id number] Report ID: [id number]
--- NOTE | 2019-12-02 11:34 | P.CNS ---
Date of Consult: 11/29/19 Reason for Consult: Acute kidney injury. Requesting Physician: Artemio Cuevas Chief Complaint: Left-sided chest pain History of Present Illness: 59-year-old male patient came to the Emergency Department complaint of chest pain. He was found to have STEMI and he was admitted for management of this particular condition. He had urgent LHC with stent placed in his left anterior descending artery. Labs showed acute kidney injury and nephrology consult was placed in view of exposure to contrast exposure from [facility]. On review of system he denied chest pain, nausea, and vomiting, cramping. He denied any issues use of nonsteroidal anti-inflammatory drugs, over-the- counter medication. He was never told he has kidney injury in the past Allergies erythromycin base [Erythromycin Base] Adverse Reaction (Intermediate, Verified 07/14/12 03:15) Nausea/Vomiting Home Medications: Clopidogrel Bisulfate [Plavix*] 75 mg PO DAILY #0 tablet 03/22/12 Lisinopril [Prinivil] 10 mg PO DAILY #0 tablet 03/22/12 Aspirin [Aspirin EC 81 MG] 81 mg PO DAILY 11/28/19 Metoprolol Succinate [Toprol Xl] 50 mg PO BID 11/28/19 Atorvastatin Calcium [Lipitor] 80 mg PO BEDTIME #30 tab 11/29/19 Clopidogrel Bisulfate [Plavix*] 75 mg PO DAILY #30 tablet 11/30/19 Metoprolol Tartrate [Lopressor*] 50 mg PO BID 6AM 6PM tab 11/30/19 - Past Medical/Surgical History Diabetic: No -: Hypertension -: Hyperlipidemia -: CAD -: NC -: Appendectomy - Social History Smoking Status: Never smoker Alcohol use: Yes CD- Drugs: No Caffeine use: Yes Place of Residence: Home Review of Systems Unremarkable Physical Examination Temp Pulse Resp BP Pulse Ox 98.2 F 62 20 127/82 96 11/30/19 08:00 11/30/19 08:00 11/30/19 08:00 11/30/19 08:00 11/30/19 08:00 General: Alert, Oriented x3 HEENT: Atraumatic Neck: Supple Respiratory: Clear to auscultation bilaterally Cardiovascular: Regular rate/rhythm, Normal S1 S2 Gastrointestinal: Normal bowel sounds Musculoskeletal: No clubbing Neurological: Normal speech, Normal strength at 5/5 x4 extr Conclusions/Impression: His creatinine has trended down since admission and LHC was performed. No new issues at this time. We will monitor his renal function closely in view of his exposure to contrast agent. Time Spent Managing Pts care (In Minutes): 50
--- NOTE | 2019-12-02 11:39 | P.PN ---
Subjective Date of Service: 12/02/19 Chief Complaint: Left-sided chest pain Subjective: No new changes, Doing well Review of Systems Unremarkable Physical Examination - Vital Signs Temperature: 98.2 F Blood Pressure: 127/82 Pulse: 62 Respirations: 20 Pulse Ox (%): 96 - Physical Exam General: Alert, In no apparent distress HEENT: Atraumatic, Normocephalic, PERRLA Neck: Supple Respiratory: Clear to auscultation bilaterally Cardiovascular: Regular rate/rhythm, Normal S1 S2 Gastrointestinal: Normal bowel sounds Musculoskeletal: No swelling Neurological: Normal speech, Normal strength at 5/5 x4 extr - Studies Medications List Reviewed: Yes Assessment And Plan - Plan Creatinine is still stable. No new development in the last 24 No concerns about prior contrast exposure for LHC. Ok for discharge home to follow up with PCP for labs in the next week. Physician Review: Patient Assessed, Agree with Above Assessment and Plan Physician Review Additional Text: STEMI- improving - no arrhythmias on tele -follow cardiology -s/p PCI with LAD stent -c/w statin/aspirin/plavix/lovenox per cardiology - will transfer to floor today ARF - improving -creatinine to 1.27 -appreciate renal team eval HTN- controlled , c/w regime HLD -controlled lipid panel ,c/ home statin dose DVT prop- on lovenox possible dc home if cleared by cardiology
== END 2019-11-30 13:05 | disposition home or self-care (01) | DRG 247 ==
LOC: ER 14:55 → 3RD-ICU 16:52 → 2ND 11-29 12:25
PROVIDERS: ADMIT Internal Medicine; ATTEND Internal Medicine
PROC: 4A023N7 Measurement of Cardiac Sampling and Pressure, Left Heart, Percutaneous Approach (ICD-10-PCS; principal; 2019-11-28)
PROC: 027034Z Dilation of Coronary Artery, One Artery with Drug-eluting Intraluminal Device, Percutaneous Approach (ICD-10-PCS; 2019-11-28)
DX: I21.3 ST elevation (STEMI) myocardial infarction of unspecified site (principal); N17.9 Acute kidney failure, unspecified; I10 Essential (primary) hypertension; E78.5 Hyperlipidemia, unspecified; E66.9 Obesity, unspecified; Z68.32 Body mass index [BMI] 32.0-32.9, adult; I25.2 Old myocardial infarction
CPT/HCPCS: 36415; 71045; 80048; 80053; 80061; 80076; 82947; 83735; 83880; 84484; 85025; 85347; 85610; 92928; 93005; 93454; 96374; 96375; 99285; C1725; C1877; C1893; J0583; J2250; J2270; J2405; J3010; J7030; J7040

== ENCOUNTER 2020-01-17 16:03 | Inpatient (IN) | payer OTHER ==
[2020-01-17] MEDS ORDERED: NA CHLORIDE 0.9% 1,000 ML ONE (16:55)
[2020-01-17] MEDS ORDERED: HEPARIN 5000 UNIT/ML 1 ML VIAL ONE (16:55)
[2020-01-17] MEDS ORDERED: HEPARIN/D5W 25,000 UNIT/500 ML BAG IV ONE (16:55)
[2020-01-17] MEDS ORDERED: FAMOTIDINE 20 MG/2 ML VIAL IV ONE (16:55)
--- NOTE | 2020-01-17 17:07 | EDPHYS ---
Physician Documentation [facility] Name: Jamie Myrick Age: 60 yrs Sex: Male : 1960 Arrival Date: 01/17/2020 Time: 16:10 Bed 23 Private MD: Solomon Cardenas T ED Physician Steven Chávez HPI: 01/16 16:44 This 60 yrs old Male presents to ER via Ambulatory with complaints of merritt Headache. 16:44 The patient complains of pain to the left occipital area, left base of the skull, right merritt occipital area and right base of the skull. 16:45 The patient describes the headache as aching. Onset: The symptoms/episode merritt began/occurred just prior to arrival, this morning. The patient or guardian reports chest pain that is located primarily in the substernal area. Onset: this morning, today. The pain does not radiate. Severity of symptoms: At its worst the pain was mild, in the emergency department the pain is unchanged. Historical: - Allergies: 16:32 No Known Allergies; ss - PMHx: 16:32 Hyperlipidemia; Hypertension; Myocardial infarction; ss - PSHx: 16:32 Appendectomy; cardiac stent; ss - Immunization history:: Adult Immunizations up to date. - Social history:: Smoking status: Patient denies any tobacco usage or history of. - Family history:: not pertinent. ROS: 16:45 Constitutional: Negative for fever, chills, and weight loss, Eyes: Negative for injury, merritt pain, redness, and discharge, ENT: Negative for injury, pain, and discharge, Neck: Negative for injury, pain, and swelling, Respiratory: Negative for shortness of breath, cough, wheezing, and pleuritic chest pain, Abdomen/GI: Negative for abdominal pain, nausea, vomiting, diarrhea, and constipation, Back: Negative for injury and pain, : Negative for injury, bleeding, discharge, and swelling, MS/Extremity: Negative for injury and deformity, Skin: Negative for injury, rash, and discoloration, Psych: Negative for depression, anxiety, suicide ideation, homicidal ideation, and hallucinations, Allergy/Immunology: Negative for hives, rash, and allergies, Endocrine: Negative for neck swelling, polydipsia, polyuria, polyphagia, and marked weight changes, Hematologic/Lymphatic: Negative for swollen nodes, abnormal bleeding, and unusual bruising. 16:45 Cardiovascular: Positive for chest pain. 16:45 Neuro: Positive for headache. Exam: 16:45 Constitutional: This is a well developed, well nourished patient who is awake, alert, merritt and in no acute distress. Head/Face: Normocephalic, atraumatic. Eyes: Pupils equal round and reactive to light, extra-ocular motions intact. Lids and lashes normal. Conjunctiva and sclera are non-icteric and not injected. Cornea within normal limits. Periorbital areas with no swelling, redness, or edema. ENT: Nares patent. No nasal discharge, no septal abnormalities noted. Tympanic membranes are normal and external auditory canals are clear. Oropharynx with no redness, swelling, or masses, exudates, or evidence of obstruction, uvula midline. Mucous membranes moist. Neck: Trachea midline, no thyromegaly or masses palpated, and no cervical lymphadenopathy. Supple, full range of motion without nuchal rigidity, or vertebral point tenderness. No Meningismus. Chest/axilla: Normal chest wall appearance and motion. Nontender with no deformity. No lesions are appreciated. Cardiovascular: Regular rate and rhythm with a normal S1 and S2. No gallops, murmurs, or rubs. Normal PMI, no JVD. No pulse deficits. Respiratory: Lungs have equal breath sounds bilaterally, clear to auscultation and percussion. No rales, rhonchi or wheezes noted. No increased work of breathing, no retractions or nasal flaring. Abdomen/GI: Soft, non-tender, with normal bowel sounds. No distension or tympany. No guarding or rebound. No evidence of tenderness throughout. Skin: Warm, dry with normal turgor. Normal color with no rashes, no lesions, and no evidence of cellulitis. MS/ Extremity: Pulses equal, no cyanosis. Neurovascular intact. Full, normal range of motion. Neuro: Awake and alert, GCS 15, oriented to person, place, time, and situation. Cranial nerves II-XII grossly intact. Motor strength 5/5 in all extremities. Sensory grossly intact. Cerebellar exam normal. Normal gait. Psych: Awake, alert, with orientation to person, place and time. Behavior, mood, and affect are within normal limits. Vital Signs: 16:26 BP 139 / 86; Pulse 75; Resp 17; Temp 97.7(O); Pulse Ox 100% on R/A; Weight 102.06 kg; ss Height 6 ft. 0 in. (182.88 cm); Pain 3/10; 17:24 BP 136 / 81; Pulse 75; Resp 17; Pulse Ox 100% ; Weight 102.06 kg; Pain 1/10; ll1 17:35 BP 135 / 84; Pulse 74; Resp 17; Pulse Ox 99% on R/A; ll1 17:47 BP 122 / 81; Pulse 70; Resp 17; Pulse Ox 99% ; ll1 18:10 BP 117 / 84; Pulse 72; Resp 16; Pulse Ox 100% on R/A; ll1 18:28 BP 132 / 73; Pulse 72; Resp 17; Pulse Ox 99% ; ll1 18:33 BP 117 / 86; Pulse 70; Resp 16; Temp 98.4; Pulse Ox 99% ; Pain 1/10; ll1 17:24 Body Mass Index 30.52 (102.06 kg, 182.88 cm) ll1 MDM: 16:17 Patient medically screened. [facility] 16:47 Data reviewed: vital signs, nurses notes, lab test result(s), EKG, radiologic studies, merritt plain films. 17:00 ED course: no tnkase, asa, plavix, heparin. to icu, add nitro drip... not to transfer. [facility] 01/16 16:44 Order name: Lipase [facility] 01/16 17:38 Order name: Basic Metabolic Panel [facility] 01/16 17:38 Order name: CBC with Diff [facility] 01/16 17:38 Order name: LFT's [facility] 01/16 17:38 Order name: Magnesium [facility] 01/16 17:38 Order name: NT PRO-BNP [facility] 01/16 17:38 Order name: PT-INR [facility] 01/16 17:38 Order name: Troponin (emerg Dept Use Only) [facility] 01/16 18:01 Order name: Basic Metabolic Panel [facility] 01/16 18:01 Order name: Basic Metabolic Panel [facility] 01/16 18:01 Order name: Basic Metabolic Panel [facility] 01/16 18:01 Order name: Basic Metabolic Panel [facility] 01/16 18:01 Order name: CBC with Automated Diff [facility] 01/16 18:01 Order name: CBC with Automated Diff [facility] 01/16 18:01 Order name: CBC with Automated Diff ED[facility] 01/16 18:01 Order name: CBC with Automated Diff EDMS 01/16 18:01 Order name: CBC with Automated Diff [facility] 01/16 18:01 Order name: CBC with Automated Diff ED[facility] 01/16 18:01 Order name: Magnesium EDMS 01/16 18:02 Order name: Magnesium EDMS 01/16 18:02 Order name: Magnesium EDMS 01/16 18:02 Order name: Magnesium EDMS 01/16 18:02 Order name: Magnesium EDMS 01/16 16:40 Order name: Cardiac monitoring; Complete Time: 16:41 [facility] 01/16 16:40 Order name: EKG - Nurse/Tech; Complete Time: 16:41 [facility] 01/16 16:40 Order name: IV Saline Lock; Complete Time: 16:41 [facility] 01/16 16:40 Order name: Labs collected and sent; Complete Time: 16:41 [facility] 01/16 16:40 Order name: O2 Per Protocol; Complete Time: 16:41 [facility] 01/16 16:40 Order name: O2 Sat Monitoring; Complete Time: 16:41 [facility] 01/16 16:50 Order name: EKG; Complete Time: 16:51 [facility] 01/16 16:50 Order name: EKG - Nurse/Tech; Complete Time: 16:57 [facility] 01/16 16:59 Order name: IV Saline Lock - Large Bore; Complete Time: 17:40 [facility] 01/16 17:38 Order name: XRAY Chest (1 view) [facility] 01/16 17:56 Order name: Heart Healthy [facility] 01/16 18:16 Order name: RAD EDMS Administered Medications: 17:05 Drug: Heparin (MO-Bolus No thrombolytic) - HEParin 60 units/kg {Co-Signature: ss ll1 (Barbara Jolly RN).} Route: IVP; Site: right antecubital; 17:51 Follow up: Response: No adverse reaction ll1 17:05 Drug: Heparin (MO Drip) 12 units/kg/hr - (HEParin 73358 units, D5W 500 ml) ll1 {Co-Signature: ss (Barbara Jolly RN).} Route: IV; Rate: calculated rate; Site: right antecubital; 17:50 Follow up: Response: No adverse reaction ll1 18:53 Follow up: IV Status: Infusion continued upon admission; IV Intake: 40ml ll1 17:05 Drug: Pepcid 20 mg Route: IVP; Site: right antecubital; ll1 17:50 Follow up: Response: No adverse reaction ll1 17:06 Drug: NS 0.9% 1000 ml Route: IV; Rate: 125 ml/hr; Site: right antecubital; ll1 17:51 Follow up: Response: No adverse reaction ll1 18:54 Follow up: IV Status: Infusion continued upon admission; IV Intake: 500ml ll1 17:23 Drug: Lopressor 2.5 mg Route: IVP; Site: right antecubital; ll1 17:40 Follow up: Response: No adverse reaction; RASS: Alert and Calm (0) ll1 17:23 Drug: Nitroglycerin 5 mcg/min Route: IV; Rate: calculated rate; Site: left antecubital; ll1 18:52 Follow up: IV Status: Infusion continued upon admission; IV Intake: 40ml ll1 17:34 Drug: Lopressor 2.5 mg Route: IVP; Site: right antecubital; ll1 17:43 Follow up: Response: No adverse reaction ll1 17:34 Drug: Lopressor 25 mg Route: PO; ll1 17:49 Follow up: Response: No adverse reaction ll1 18:51 Not Given (not needed at this time.): morphine 2 mg IVP once; (PAIN>8) RASS on ADMN: ll1 Combtv4, Very Agttd3, Agttd2, Rstlss1, AlertClm0, Drwsy-1, LtSdtn-2, ModSdtn-3, DpSdtn-4, UnArsble-5 x2 18:51 Not Given (not needed at this time): Zofran (Ondansetron) 4 mg IVP once; over 2 minutes ll1 Disposition: 01/17/20 17:05 Hospitalization ordered by Shree Gutierrez for Inpatient Admission. Preliminary diagnosis is ST elevation (STEMI) myocardial infarction of other sites - lateral wall. - Bed requested for Intensive Care Unit. - Status is Inpatient Admission. ll1 - Condition is Fair. - Problem is new. - Symptoms have improved. Signatures: Dispatcher [employer] EDSteven Reyes MD MD cha Smirch, Shelby, RN RN Julio C Campbell RN RN ll1 Barbara Jolly RN ss Corrections: (The following items were deleted from the chart) 18:54 17:05 Hospitalization Ordered by Shree Gutierrez MD for Inpatient Admission. Preliminary ll1 diagnosis is ST elevation (STEMI) myocardial infarction of other sites - lateral wall. Bed requested for Intensive Care Unit. Status is Inpatient Admission. Condition is Fair. Problem is new. Symptoms have improved. merritt
--- NOTE | 2020-01-17 17:07 | ER ---
Nurse's Notes [facility] Name: Jamie Myrick Age: 60 yrs Sex: Male : 1960 Arrival Date: 01/17/2020 Time: 16:10 Bed 23 Private MD: Solomon Cardenas T Diagnosis: ST elevation (STEMI) myocardial infarction of other sites-lateral wall Presentation: 01/16 16:26 Chief complaint: Patient states: L sided neck discomfort that began earlier today after ss performing strenuous yard work, chopping with an axe in and awkward position. Pt states that he took some aspirin and laid down for about an hour, and just wants to get checked out because he has a cardiac stent. 16:26 Coronavirus screen: Patient denies fever greater than 100.4F, cough, shortness of ss breath, or difficulty breathing. Proceed with normal triage process. Ebola Screen: Patient denies exposure to infectious person. Patient denies travel to an Ebola-affected area in the 21 days before illness onset. 16:26 Method Of Arrival: Ambulatory ss 16:26 Acuity: CHRIS 3 ss 16:29 Initial Sepsis Screen: Does the patient meet any 2 criteria? No. Patient's initial ll1 sepsis screen is negative. Does the patient have a suspected source of infection? No. Patient's initial sepsis screen is negative. 16:29 Risk Assessment: Do you want to hurt yourself or someone else? Patient reports no ll1 desire to harm self or others. 16:31 Onset of symptoms was January 17, 2020. ll1 Triage Assessment: 16:30 Pain: Pain. ll1 16:42 Headache History: Denies prior headaches. General: Appears in no apparent distress. ll1 Behavior is calm, cooperative. Pain: Pain began gradually. Pain: Denies pain. Neuro: No deficits noted. Cardiovascular: Reports chest pain, fatigue, episode of CP earlier today, none now. Heart tones S1 S2 Capillary refill < 3 seconds Clubbing of nail beds is absent Patient's skin is warm and dry. Pulses are 2+ in right radial artery and left radial artery. Respiratory: No deficits noted. GI: No deficits noted. 17:47 Pain: Also complains of no other associated symptoms. ll1 Historical: - Allergies: 16:32 No Known Allergies; ss - PMHx: 16:32 Hyperlipidemia; Hypertension; Myocardial infarction; ss - PSHx: 16:32 Appendectomy; cardiac stent; ss - Immunization history:: Adult Immunizations up to date. - Social history:: Smoking status: Patient denies any tobacco usage or history of. - Family history:: not pertinent. Screenin:29 Abuse screen: Denies threats or abuse. Nutritional screening: No deficits noted. ll1 Tuberculosis screening: No symptoms or risk factors identified. Fall Risk None identified. Total Burns Fall Scale indicates No Risk (0-24 pts). Assessment: 17:24 General: Appears in no apparent distress. Behavior is calm, cooperative. Pain: Denies ll1 pain. Neuro: No deficits noted. Cardiovascular: Reports chest pain, fatigue, Denies shortness of breath, Heart tones S1 S2 Capillary refill < 3 seconds JVD is absent Patient's skin is warm and dry. Pulses are 2+ in right radial artery and left radial artery. Respiratory: No deficits noted. GI: No deficits noted. Vital Signs: 16:26 BP 139 / 86; Pulse 75; Resp 17; Temp 97.7(O); Pulse Ox 100% on R/A; Weight 102.06 kg; ss Height 6 ft. 0 in. (182.88 cm); Pain 3/10; 17:24 BP 136 / 81; Pulse 75; Resp 17; Pulse Ox 100% ; Weight 102.06 kg; Pain 1/10; ll1 17:35 BP 135 / 84; Pulse 74; Resp 17; Pulse Ox 99% on R/A; ll1 17:47 BP 122 / 81; Pulse 70; Resp 17; Pulse Ox 99% ; ll1 18:10 BP 117 / 84; Pulse 72; Resp 16; Pulse Ox 100% on R/A; ll1 18:28 BP 132 / 73; Pulse 72; Resp 17; Pulse Ox 99% ; ll1 18:33 BP 117 / 86; Pulse 70; Resp 16; Temp 98.4; Pulse Ox 99% ; Pain 1/10; ll1 17:24 Body Mass Index 30.52 (102.06 kg, 182.88 cm) ll1 Vitals: 18:10 Cardiac Rhythm Assessment Regular. ll1 ED Course: 16:10 Patient arrived in ED. mr 16:10 Solomon Cardenas MD is Private Physician. mr 16:17 Steven Chávez MD is Attending Physician. merritt 16:27 Julio C Pete, CHAVEZ is Primary Nurse. ll1 16:29 Arm band placed on Patient placed in an exam room, on a stretcher. ll1 16:30 Patient has correct armband on for positive identification. Call light in reach. Side ll1 rails up X 1. telephone advice nurse on. Pulse ox on. NIBP on. 16:31 Triage completed. ss 16:41 Inserted saline lock: 20 gauge in right antecubital area, using aseptic technique. ll1 Blood collected. 16:55 EKG done, by ED staff, reviewed by Steven Chávez MD. 3 17:02 Shree Gutierrez MD is Hospitalizing Provider. [facility] 17:25 No provider procedures requiring assistance completed. ll1 18:11 Patient admitted, IV remains in place. intact. ll1 Administered Medications: 17:05 Drug: Heparin (IN-Bolus No thrombolytic) - HEParin 60 units/kg {Co-Signature: chata [facility] (Barbara Jolly RN).} Route: IVP; Site: right antecubital; 17:51 Follow up: Response: No adverse reaction 1 17:05 Drug: Heparin (IN Drip) 12 units/kg/hr - (HEParin 06994 units, D5W [address]) [facility] {Co-Signature: chata (Barbara Jolly RN).} Route: IV; Rate: calculated rate; Site: right antecubital; 17:50 Follow up: Response: No adverse reaction ll1 18:53 Follow up: IV Status: Infusion continued upon admission; IV Intake: 40ml 1 17:05 Drug: Pepcid 20 mg Route: IVP; Site: right antecubital; 1 17:50 Follow up: Response: No adverse reaction 1 17:06 Drug: NS 0.9% 1000 ml Route: IV; Rate: 125 ml/hr; Site: right antecubital; 1 17:51 Follow up: Response: No adverse reaction 1 18:54 Follow up: IV Status: Infusion continued upon admission; IV Intake: 500ml 1 17:23 Drug: Lopressor 2.5 mg Route: IVP; Site: right antecubital; 1 17:40 Follow up: Response: No adverse reaction; RASS: Alert and Calm (0) [facility] 17:23 Drug: Nitroglycerin 5 mcg/min Route: IV; Rate: calculated rate; Site: left antecubital; ll1 18:52 Follow up: IV Status: Infusion continued upon admission; IV Intake: 40ml ll1 17:34 Drug: Lopressor 2.5 mg Route: IVP; Site: right antecubital; ll1 17:43 Follow up: Response: No adverse reaction ll1 17:34 Drug: Lopressor 25 mg Route: PO; ll1 17:49 Follow up: Response: No adverse reaction ll1 18:51 Not Given (not needed at this time.): morphine 2 mg IVP once; (PAIN>8) RASS on ADMN: ll1 Combtv4, Very Agttd3, Agttd2, Rstlss1, AlertClm0, Drwsy-1, LtSdtn-2, ModSdtn-3, DpSdtn-4, UnArsble-5 x2 18:51 Not Given (not needed at this time): Zofran (Ondansetron) 4 mg IVP once; over 2 minutes ll1 Intake: 18:52 IV: 40ml; Total: 40ml. ll1 18:53 IV: 40ml; Total: 80ml. ll1 18:54 IV: 500ml; Total: 580ml. ll1 Outcome: 17:05 Decision to Hospitalize by Provider. merritt 18:49 Admitted to [facility] accompanied by nurse, accompanied by tech, via stretcher, on 1 monitor, with chart, Report called to Edna Casas 18:49 Condition: stable 18:49 Instructed on the need for admit. 18:54 Patient left the ED. 1 Signatures: Steven Chávez MD MD cha Rivera, Mary mr Smirch, Shelby, RN RN ss Herrera, Deanna [facility] Julio C Pete RN RN 1 Barbara Jolly RN ss Corrections: (The following items were deleted from the chart) 17:48 17:47 BP 135 / 84; Pulse 74bpm; Resp 17bpm; Pulse Ox 99% RA; ll1 ll1
[2020-01-17] MEDS ORDERED: ONDANSETRON 4 MG/2 ML VIAL ONE (17:14)
[2020-01-17] MEDS ORDERED: MORPHINE 2 MG/ML SYR ONE (17:14)
[2020-01-17] MEDS ORDERED: METOPROLOL TARTRATE 5 MG/5 ML INJ IV ONE (17:15)
[2020-01-17] MEDS ORDERED: NITROGLYCERIN/D5W 50 MG/250 ML BTL IV ONE (17:15)
[2020-01-17] MEDS ORDERED: METOPROLOL TAR 25 MG TAB ONE (17:32)
[2020-01-17 17:44] LABS: Absolute Lymphocytes (CBC) 0.9 K/uL (0.7-4.9); Basophils % 0.4 % (0-1.3); Hematocrit 48.6 % (39.6-49.0); Lymphocytes % 7.4 % (15.3-44.8); RBC Red Blood Cell Count 5.17 M/uL (4.33-5.43)
[2020-01-17 17:45] LABS: Protime INR 1.03
--- NOTE | 2020-01-17 17:49 | P.HP ---
Patient History Date of Service: 01/17/20 Reason for admission: Chest pain History of Present Illness: Mr. Myrick is 59-year-old male with history of CAD status post CT x2, recent PCI to LAD. Patient was discharged from the hospital on 11/30/2019 in a stable condition after the PCI. He reports that he went back to his normal activities without any issues. Today, patient did strenuous activities in the yard for 2 hours, then subsequently developed a headache followed by subtle chest pain. He took 2 tablets of 81 mg aspirin and decided to present to the emergency room. He described the pain as very minimal, nonradiating, unable to point to the location of pain. He denied any shortness of breath, diaphoresis or lightheadedness. Currently, he has an occipital headache that is 2/10, improved with aspirin. In the emergency room, EKG showed concerning ST segment elevation in lateral leads with reciprocal ST depression. Troponin is pending. He reports compliance with medication. Allergies erythromycin base [Erythromycin Base] Adverse Reaction (Intermediate, Verified 07/14/12 03:15) Nausea/Vomiting Home Medications: Clopidogrel Bisulfate [Plavix*] 75 mg PO DAILY #0 tablet 03/22/12 Lisinopril [Prinivil] 10 mg PO DAILY #0 tablet 03/22/12 Aspirin [Aspirin EC 81 MG] 81 mg PO DAILY 11/28/19 Metoprolol Succinate [Toprol Xl] 50 mg PO BID 11/28/19 Atorvastatin Calcium [Lipitor] 80 mg PO BEDTIME #30 tab 11/29/19 Clopidogrel Bisulfate [Plavix*] 75 mg PO DAILY #30 tablet 11/30/19 Metoprolol Tartrate [Lopressor*] 50 mg PO BID 6AM 6PM tab 11/30/19 - Past Medical/Surgical History Diabetic: No -: Hypertension -: Hyperlipidemia -: CAD -: CT -: Appendectomy - Social History Smoking Status: Never smoker Alcohol use: Yes CD- Drugs: No Caffeine use: Yes Review of Systems 10-point ROS is otherwise unremarkable Cardiovascular: Chest Pain, As per HPI Neurological: As per HPI Physical Examination - Vital Signs Temperature: 97.7 F Blood Pressure: 139/86 Pulse: 75 Respirations: 17 Pulse Ox (%): 100 - Physical Exam General: Alert, In no apparent distress HEENT: Atraumatic, PERRLA, Mucous membr. moist/pink, EOMI, Sclerae nonicteric Neck: Supple, 2+ carotid pulse no bruit, No LAD, Without JVD or thyroid abnormality Respiratory: Clear to auscultation bilaterally, Normal air movement Cardiovascular: Regular rate/rhythm, Normal S1 S2 Gastrointestinal: Normal bowel sounds, No tenderness Musculoskeletal: No tenderness Integumentary: No rashes Neurological: Normal gait, Normal speech, Normal strength at 5/5 x4 extr, Normal tone, Normal affect Lymphatics: No axilla or inguinal lymphadenopathy - Studies Laboratory Data (last 24 hrs) 01/17/20 16:40: Lipase 177 Assessment and Plan - Plan Mr. Myrick is 60y/o male pw chest pain #ACS- EKG with significant changes. Troponin is pending. -Adult Parole Officer notified by the ER team, recommends nitro and heparin drip. -Recent RUBÉN placement to LAD, patient reports compliance to DAPT. -morphine for pain control -reinitiated on plavix and aspirin. -Continue statin & BB as well -plan for cath at the discretion of state appellate clerk #Hypertension- continue bb and nitro drip -hold lisinopril for now -labs still pending #Hyperlipidemia -resume statin DVT ppx- on heparin gtt Patient is full code. Dispo- admit to ICU. - Advance Directives Does patient have a Living Will: No Does patient have a Durable POA for Healthcare: No - Code Status/Comfort Care Code Status Assessed: Yes Code Status: Full Code
[2020-01-17] MEDS ORDERED: NITROGLYCERIN/D5W 50 MG/250 ML BTL IV PRN (17:51)
[2020-01-17 17:58] LABS: ALT/SGPT 27 U/L (12-78); AST/SGOT 16 U/L (15-37); Albumin 4.1 g/dL (3.4-5.0); Alkaline Phosphatase 77 U/L (45-117); BUN Blood Urea Nitrogen 19 mg/dL (7-18); Bicarbonate 25 mmol/L (21-32); Bilirubin Direct 0.3 mg/dL (0-0.2); Bilirubin Total 1.1 mg/dL (0.2-1.0); Glucose Level 130 mg/dL (74-106); Magnesium 2.1 mg/dL (1.8-2.4); NT PRO-BNP 207 pg/mL (<125); Potassium 3.9 mmol/L (3.5-5.1); Protein, Total 7.3 g/dL (6.4-8.2); Sodium Level 139 mmol/L (136-145); Troponin (Emerg Dept Use Only) < 0.02 ng/mL (0.0-0.045)
[2020-01-17] MEDS ORDERED: HEPARIN/D5W 25,000 UNIT/500 ML BAG IV SCH (18:00)
--- NOTE | 2020-01-17 18:15 | RAD REPORT ---
EXAM DESCRIPTION: RAD - Chest Single View - 01/17/2020 6:04 pm CLINICAL HISTORY: CHEST PAIN Chest pain. COMPARISON: Chest Single View dated 11/28/2019; CHEST SINGLE VIEW dated 03/20/2012 FINDINGS: Portable technique limits examination quality. The lungs are grossly clear. The heart is normal in size. No displaced fractures. IMPRESSION: No acute intrathoracic process suspected.
[2020-01-17] MEDS ORDERED: LIDOCAINE 1% 20 ML MDV ONE (18:34)
[2020-01-17] MEDS ORDERED: HEPA 1000U/500MLS 1,000 UNIT/500 ML BAG IV ONE (18:35)
[2020-01-17] MEDS ORDERED: NA CHLORIDE 0.9% 50 ML ONE (18:35)
[2020-01-17] MEDS ORDERED: MIDAZOLAM HCL 2 MG/2 ML INJ ONE ×2 (18:36→19:15)
[2020-01-17] MEDS ORDERED: FENTANYL CITR 100 MCG/2 ML ONE (18:36)
[2020-01-17] MEDS ORDERED: ASPIRIN 325 MG TAB ONE (19:22)
[2020-01-17] MEDS ORDERED: PRASUGREL (EFFIENT) 10 MG TAB ONE (19:22)
[2020-01-17] MEDS ORDERED: D5W 250 ML IV ONE (19:32)
[2020-01-17] MEDS ORDERED: NITROPRUSSIDE 50 MG VIAL IV ONE (19:32)
[2020-01-17] MEDS ORDERED: ACETYLCYST 20% 4 ML VIAL IH ONE (19:47)
[2020-01-17] MEDS ORDERED: METOPROLOL XL 50 MG TAB PO SCH (21:00)
--- NOTE | 2020-01-17 21:31 | CON ---
Date of Consultation: 01/17/2020 Reason For Consultation: Acute anterior VT. History Of Present Illness: Mr. Myrick is a 60-year-old white male with history of hypertension, dy slipidemia, coronary artery disease status post stents in the LAD in the past. He had a stent occlud ed in November of 2019 and that was redilated and restented. He was placed on Plavix then. He comes back today with another acute occlusion, chest pain, ST-elevation, 1L and V2 and we decided to bring him to the minilab operator to evaluate his coronary anatomy where he underwent another angioplasty and sten t of a completely occluded LAD stent again. He received Angiomax and Effient and aspirin and the marty n is to continue heparin 2 hours after the procedure is done and to put him on Brilinta instead of Pl avix as he has failed that twice. Past Medical History: As stated above. Allergies: ERYTHROMYCIN. Review of Systems: Negative. Social History: Negative. Family History: Noncontributory. Medications: At home include lisinopril 10 mg daily, aspirin 81 mg daily, Lipitor 80 mg daily, Plavi x 75 mg daily, and metoprolol 50 b.i.d. Physical Examination: Vital Signs: Stable. Afebrile. HEENT: Negative. Neck: Supple with no bruit. Chest: Clear to auscultation and percussion. Cardiac: Revealed a regular rhythm and rate. No murmurs, gallops, or rubs. Abdomen: Benign. Extremities: Revealed no clubbing, cyanosis, or edema. Diagnostic Data: EKG was stated above. Chest x-ray was negative. Laboratory Data: Laboratory evaluation was within normal limit. Troponin was still pending. His cr eatinine is 1.55. Potassium was 3.99. Impression And Plan: Status post acute myocardial infarction, status post acute intervention with an gioplasty and stent of his LAD. We will continue aspirin. We will put him on Brilinta, Lipitor, met oprolol. I am going to restart his heparin 2 hours after the procedure without any bolus for probabl y about 24 hours. He will hopefully do better with Brilinta. He has failed Plavix already twice. H is other problems include hypertension, dyslipidemia, and renal insufficiency. We will give him 1 do se of Mucomyst after the procedure. I will continue to follow him in the ICU. I would like to obser ve him for at least 48 hours. ZULY/ANDREW Voice ID: [id number] Report ID: [id number]
[2020-01-17] MEDS ORDERED: MORPHINE 2 MG/ML SYR IV PRN (21:51)
[2020-01-17] MEDS ORDERED: ZOLPIDEM TARTRATE 10 MG TABLET PO PRN (21:52)
[2020-01-17] MEDS ORDERED: NA CHLORIDE 0.9% 1,000 ML IV SCH ×2 (22:00→23:00)
--- NOTE | 2020-01-17 22:00 | OP ---
Date of Procedure: 01/17/2020 Surgeon: Gallo Curtis MD Veterinary Inspector: Indu Glover. Procedure: Left heart catheterization, selective coronary arteriogram, angioplasty, and stent of the LAD. Indication: Acute anterior TX. History: Mr. Myrick is a 60-year-old male. He has had a history of CAD status post LAD stent in past. Has renal insufficiency, hypertension, dyslipidemia, came into the emergency room today with an acute anterior TX, positive troponin, approximately 30 minutes to an hour of chest pain. We deci ded to bring him to the labor relations supervisor because of ST elevation in 1L and V2. In the labor relations supervisor he was having mild chest pain with ST elevation. He was given Versed and fentanyl for IV sedation, prepped and dr allison in the routine sterile fashion. A 6-Colombian sheath introduced in the right common femoral artery successfully. Angiography there was normal. Angio-Seal was used to close the case. Torsten cathet er 6-Colombian left and right were used to inject the left main and right main respectively. His RCA wa s large, dominant, normal. His circumflex was normal. His LAD showed acute occlusion thrombus of hi s proximal LAD at the proximal portion of the stent. An XB LAD 3.5 guide with side hole was used to cannulate the left main with 6-Colombian. A 0.014 [place] wire was used to cross the lesion successfully . Initially, a 2.5 x 15 Emerge balloon was used to dilate throughout the LAD proximal and distal wit h residual stenosis and what appears to be a thrombus in the second diagonal. 100 mcg of Nipride was given intracoronary. Following that, a 2.5 x 16 Synergy stent was overlapped with the old 1, final picture showed 100% flow HAZEL-3, 0% residual with excellent results. There remained a small thrombus in the second diagonal which is a small branch. No EKG changes. No hemodynamic compromise. No sym ptoms. There were no complications. Blood Loss: 5 mL. Postoperative Diagnosis: Coronary artery disease status post emergency successful angioplasty and st ent of the LAD secondary to acute anterior myocardial infarction secondary to acute closure of the st ent in the LAD. Anesthesia: Total conscious sedation was 60 minutes. Patient received Angiomax, aspirin, and Effien t during the procedure. He will remain in the hospital tonight and maybe even tomorrow. We will see how he progresses. NB/MODL Voice ID: [id number] Report ID: [id number]
[2020-01-17] MEDS: ATORVASTATIN 80 MG TAB PO SCH (22:37)
[2020-01-17] MEDS: METOPROLOL XL 50 MG TAB PO SCH (22:47)
[2020-01-17 23:02] LABS: Protime INR 1.17
[2020-01-17 23:51] VITALS: BMI 29.9
[2020-01-18 03:29] LABS: Absolute Lymphocytes (CBC) 1.5 K/uL (0.7-4.9); Basophils % 0.5 % (0-1.3); Hematocrit 44.8 % (39.6-49.0); Lymphocytes % 15.1 % (15.3-44.8); MPV 8.4 fL (7.6-11.3); RBC Red Blood Cell Count 4.75 M/uL (4.33-5.43)
[2020-01-18 03:41] LABS: Magnesium 2.1 mg/dL (1.8-2.4); Potassium 3.6 mmol/L (3.5-5.1)
[2020-01-18] MEDS: METOPROLOL XL 50 MG TAB PO SCH (05:45)
[2020-01-18] MEDS: TICAGRELOR 90 MG TABLET PO SCH ×2 (08:30→20:22)
[2020-01-18] MEDS: ASPIRIN EC 81 MG TAB PO SCH (08:30)
[2020-01-18] MEDS ORDERED: CLOPIDOGREL 75 MG TABLET PO SCH (09:00)
--- NOTE | 2020-01-18 09:17 | EKG ---
Test Date: 2020-01-17 Test Time: 16:33:10 Recruiting Intern: [place] MEASUREMENT RESULTS: Intervals: Rate: 73 DC: 156 QRSD: 84 QT: 392 QTc: 431 [place]: P: 21 DC: 156 QRS: 82 T: -3 INTERPRETIVE STATEMENTS: Normal sinus rhythm ST elevation, consider lateral injury or acute infarct ACUTE [place] Abnormal ECG Compared to ECG 11/30/2019 08:41:45 ST (T wave) deviation now present Myocardial infarct finding now present Sinus bradycardia no longer present T-wave abnormality no longer present Possible ischemia no longer present Prolonged QT interval no longer present Electronically Signed On 01-18-20 09:16:25 CDT by Gallo uCrtis
--- NOTE | 2020-01-18 09:17 | EKG ---
Test Date: 2020-01-17 Test Time: 16:51:54 Rail Equipment Operator: PAL MEASUREMENT RESULTS: Intervals: Rate: 66 MO: 134 QRSD: 80 QT: 400 QTc: 419 [place]: P: 56 MO: 134 QRS: 85 T: -1 INTERPRETIVE STATEMENTS: Normal sinus rhythm with sinus arrhythmia ST elevation, consider lateral injury or acute infarct ACUTE [place] Abnormal ECG Compared to ECG 01/17/2020 16:33:10 No significant changes Electronically Signed On 01-18-20 09:16:23 CDT by Gallo Curtis
--- NOTE | 2020-01-18 10:36 | P.PN ---
Subjective Date of Service: 01/18/20 Chief Complaint: Chest pain Subjective: Improving Review of Systems 10-point ROS is otherwise unremarkable Physical Examination - Vital Signs Temperature: 98.1 F Blood Pressure: 120/75 Pulse: 72 Respirations: 13 Pulse Ox (%): 100 - Physical Exam General: Alert, In no apparent distress HEENT: Atraumatic, PERRLA, EOMI Neck: Supple, JVD not distended Respiratory: Clear to auscultation bilaterally, Normal air movement Cardiovascular: Regular rate/rhythm, Normal S1 S2 Gastrointestinal: Normal bowel sounds, No tenderness Musculoskeletal: No tenderness Integumentary: No rashes Neurological: Normal speech, Normal tone, Normal affect Lymphatics: No axilla or inguinal lymphadenopathy - Studies Laboratory Data (last 24 hrs) 01/17/20 16:40: PT 12.1, INR 1.03 01/17/20 16:40: WBC 12.3 H, Hgb 16.3, Hct 48.6, Plt Count 242 01/17/20 16:40: Sodium 139, Potassium 3.9, BUN 19 H, Creatinine 1.55 H, Glucose 130 H, Magnesium 2.1, Total Bilirubin 1.1 H, AST 16, ALT 27, Alkaline Phosphatase 77 01/17/20 16:40: Lipase 177 Assessment & Plan Physician Review Additional Text: Mr. Myrick is 60y/o male pw chest pain #Acute STEMI- EKG with significant changes. s/p emergency successful angioplasty and stent of the LAD secondary to acute anterior myocardial infarction secondary to acute closure of the stent in the LAD. -Recent RUBÉN placement to LAD, patient reports compliance to DAPT. -morphine for pain control -Now on brilinta and aspirin. -Continue statin & BB as well -heparin turned off this morning. District Manager [employer] on consult, appreciate recommendation. #Hypertension- Continue medications. -monitor BP #Hyperlipidemia -resumed statin DVT ppx- heparin Patient is full code. Dispo- can tx to the floor once cleared by banquet prep cook
--- NOTE | 2020-01-18 11:29 | PN ---
Subjective: Mr. Myrick came in on 01/17/2020 with an acute anterior MT, was taken to the civil laboratory technician e mergently. Catheterization revealed complete occlusion of the proximal LAD with a thrombus in the pr oximal LAD and an old stent. He underwent an angioplasty and re-stenting of that LAD with 0% residua l. He received Angiomax, Effient, and aspirin during the procedure. I switched him from Plavix whic h he takes at home to Brilinta 90 b.i.d. Continue his heparin overnight without a bolus. Overnight, he did very well. No EKG changes. ST segments have normalized. No chest pain. He is in sinus rhy thm. His chest is clear. His right groin is intact without any hematoma. He has good distal pulses in the dorsalis pedis and posterior tibial. For today I will plan to take him off the heparin, off nitroglycerin, put him on Brilinta 90 b.i.d. Continue his beta-blockers, aspirin, and statin. I ori l move on to the regular room today and hopefully discharge him tomorrow. ZULY/ANDREW Voice ID: [id number] Report ID: [id number]
[2020-01-18] MEDS: ATORVASTATIN 80 MG TAB PO SCH (20:22)
[2020-01-19 00:38] VITALS: O2SAT 99
[2020-01-19 05:05] LABS: Absolute Lymphocytes (CBC) 1.5 K/uL (0.7-4.9); Basophils % 0.7 % (0-1.3); Hematocrit 46.7 % (39.6-49.0); Lymphocytes % 16.4 % (15.3-44.8); MPV 8.1 fL (7.6-11.3); RBC Red Blood Cell Count 4.91 M/uL (4.33-5.43)
[2020-01-19 05:14] LABS: Magnesium 2.1 mg/dL (1.8-2.4); Potassium 3.6 mmol/L (3.5-5.1)
[2020-01-19] MEDS ORDERED: METOPROLOL XL 25 MG TAB PO SCH (06:00)
[2020-01-19 08:25] VITALS: BP 128/82; TEMP 97.3
[2020-01-19] MEDS: ASPIRIN EC 81 MG TAB PO SCH (09:21)
[2020-01-19] MEDS: TICAGRELOR 90 MG TABLET PO SCH (09:21)
--- NOTE | 2020-01-19 10:22 | PN ---
Date of Progress Note: 01/19/2020 Mr. Myrick had came in approximately 48 hours ago with an acute anterior IL. Was taken to the flower shop laborer/designer and found to have an acute occlusion of his LAD stent with a thrombus. He underwent angioplasty and stent, IV Nipride intracoronary. He has done very well since without any chest pain. No arrhyth mias. His ST elevation subsided. He was moved from the ICU to the floor yesterday. His right groin appeared to be intact. His chest is clear. We will send him home today on his home medication. Th e only difference will be instead of Plavix, I am going to put him on Brilinta 90 mg 1 p.o. b.i.d. an d I will see him in the office in 2 weeks. ZULY/ANDREW Voice ID: [id number] Report ID: [id number]
--- NOTE | 2020-01-19 10:30 | P.DS ---
Admission Date: 01/17/20 Discharge Date: 01/19/20 Disposition: ROUTINE DISCHARGE Reason for Admission: Chest pain Consultations: Manager Rfid Procedures: Coronary artery disease status post emergency successful angioplasty and stent of the LAD secondary to acute anterior myocardial infarction secondary to acute closure of the stent in the LAD. - Problems (1) HLD (hyperlipidemia) Status: Acute (2) HTN (hypertension) Status: Acute (3) Obesity Status: Acute (4) STEMI (ST elevation myocardial infarction) Status: Acute Brief History of Present Illness: "Mr. Myrick is 59-year-old male with history of CAD status post [place] x2, recent PCI to LAD. Patient was discharged from the hospital on 11/30/2019 in a stable condition after the PCI. He reports that he went back to his normal activities without any issues. Today, patient did strenuous activities in the yard for 2 hours, then subsequently developed a headache followed by subtle chest pain. He took 2 tablets of 81 mg aspirin and decided to present to the emergency room. He described the pain as very minimal, nonradiating, unable to point to the location of pain. He denied any shortness of breath, diaphoresis or lightheadedness. Currently, he has an occipital headache that is 2/10, improved with aspirin. In the emergency room, EKG showed concerning ST segment elevation in lateral leads with reciprocal ST depression. He reports compliance with medication" Hospital Course: Mr Myrick was taken to the the labor economics professor emergently and underwent a successful angioplasty and stent of the LAD secondary to acute anterior myocardial infarction secondary to acute closure of the stent in the LAD. He has been started on brillinta and clopidogrel discontinued. He is chest pain free and remained stable for discharge. Vital Signs/Physical Exam: Temp Pulse Resp BP Pulse Ox 97.3 F 84 17 128/82 99 01/19/20 08:00 01/19/20 08:00 01/19/20 08:00 01/19/20 08:00 01/19/20 08:00 General: Alert, In no apparent distress HEENT: Atraumatic, PERRLA, EOMI Neck: Supple, JVD not distended Respiratory: Clear to auscultation bilaterally, Normal air movement Cardiovascular: Regular rate/rhythm, Normal S1 S2 Gastrointestinal: Normal bowel sounds, No tenderness Musculoskeletal: No tenderness Integumentary: No rashes Neurological: Normal speech, Normal tone, Normal affect Lymphatics: No axilla or inguinal lymphadenopathy Laboratory Data at Discharge: WBC 9.3 K/uL (4.3-10.9) 01/19/20 04:51 Hgb 15.4 g/dL (13.6-17.9) 01/19/20 04:51 Hct 46.7 % (39.6-49.0) 01/19/20 04:51 Plt Count 190 K/uL (152-406) 01/19/20 04:51 PT 13.8 SECONDS (9.5-12.5) H 01/17/20 22:49 INR 1.17 01/17/20 22:49 APTT 84.7 SECONDS (24.3-36.9) H 01/18/20 07:55 Sodium 141 mmol/L (136-145) 01/19/20 04:51 Potassium 3.6 mmol/L (3.5-5.1) 01/19/20 04:51 BUN 13 mg/dL (7-18) 01/19/20 04:51 Creatinine 1.27 mg/dL (0.55-1.3) 01/19/20 04:51 Glucose 95 mg/dL (74-106) 01/19/20 04:51 Magnesium 2.1 mg/dL (1.8-2.4) 01/19/20 04:51 Total Bilirubin 1.1 mg/dL (0.2-1.0) H 01/17/20 16:40 AST 16 U/L (15-37) 01/17/20 16:40 ALT 27 U/L (12-78) 01/17/20 16:40 Alkaline Phosphatase 77 U/L (45-117) 01/17/20 16:40 Lipase 177 U/L (73-393) 01/17/20 16:40 Home Medications: Aspirin [Aspirin EC 81 MG] 81 mg PO DAILY 11/28/19 Atorvastatin Calcium [Lipitor] 80 mg PO BEDTIME #30 tab 11/29/19 Metoprolol Tartrate [Lopressor*] 50 mg PO BID 6AM 6PM tab 11/30/19 Ticagrelor [Brilinta] 90 mg PO BID #60 tablet 01/19/20 New Medications: Ticagrelor [Brilinta] 90 mg PO BID #60 tablet Diet: AHA Activity: Ad michelle Followup: Baradhi,Gallo S, MD [ACTIVE - CAN ADMIT] - 1 Week (call to schedule appointment) Solomon Cardenas MD [Primary Care Provider] - (call schedule appointment )
== END 2020-01-19 11:30 | disposition home or self-care (01) | DRG 247 ==
LOC: ER 16:03 → ERHOLD 17:52 → 3RD-ICU 20:35 → 4TH 01-18 16:55
PROVIDERS: ADMIT Hospitalist; ATTEND Hospitalist
PROC: 4A023N7 Measurement of Cardiac Sampling and Pressure, Left Heart, Percutaneous Approach (ICD-10-PCS; principal; 2020-01-17)
PROC: 027034Z Dilation of Coronary Artery, One Artery with Drug-eluting Intraluminal Device, Percutaneous Approach (ICD-10-PCS; 2020-01-17)
PROC: B211YZZ Fluoroscopy of Multiple Coronary Arteries using Other Contrast (ICD-10-PCS; 2020-01-17)
DX: I21.09 ST elevation (STEMI) myocardial infarction involving other coronary artery of anterior wall (principal); I25.10 Atherosclerotic heart disease of native coronary artery without angina pectoris; I10 Essential (primary) hypertension; I25.2 Old myocardial infarction
CPT/HCPCS: 36415; 71045; 80048; 80076; 83690; 83735; 83880; 84484; 85025; 85347; 85610; 85730; 92928; 93005; 93454; 96365; 96366; 96368; 96375; 99285; C1725; C1877; C1893; J0583; J1644; J2250; J2270; J2405; J3010; J7030; J7060